=== PATIENT | male | born 1990 | race Caucasian/White ===

== ENCOUNTER 2017-09-10 16:26 | Emergency (ER) | payer OTHER ==
[~2017-09-10] VITALS: Ht 177.8 cm; Wt 95.3 kg
[~2017-09-10 16:26] MED LIST: IBUPROFEN 600600 M1 PO; PRILOSEC; TOBREX5 ML OP
[2017-09-10 16:52] LABS: URINE BILIRUBIN NEGATIVE (Negative); URINE BLOOD NEGATIVE (Negative); URINE CLARITY CLEAR; URINE COLOR YELLOW; URINE GLUCOSE-RANDOM* NEGATIVE (Negative); URINE KETONES NEGATIVE (Negative); URINE LEUKOCYTES-REFLEX NEGATIVE (Negative); URINE NITRITE-REFLEX NEGATIVE (Negative); URINE PROTEIN (DIPSTICK) NEGATIVE (Negative); URINE SPECIFIC GRAVITY >= 1.030 (1.005-1.035); URINE UROBILINOGEN 0.2 E.U./dl (0.2-1.0)
[2017-09-10 17:13] LABS: BASOPHILS 0.5 % (0.0-2.0); EOSINOPHILS 2.7 % (0.0-3.0); HEMATOCRIT 42.4 % (42.0-52.0); HEMOGLOBIN 14.5 gm/dL (14.0-18.0); LYMPHOCYTES 15.7 % (24.0-44.0); MCH 29.3 pg (26.0-34.0); MCHC 34.3 g/dL (28.0-37.0); MCV 85.4 fL (80.0-100.0); MONOCYTES 6.3 % (1.0-8.0); PLATELET COUNT 305 thou/uL (150-400); POLYS 74.8 % (36.0-66.0); RBC 4.96 mil/uL (4.50-6.00); RDW 13.3 % (10.5-14.5)
[2017-09-10 17:25] LABS: CALCIUM 9.3 mg/dL (8.5-10.1); CREATININE 0.9 mg/dL (0.7-1.3); POTASSIUM 4.1 mmol/L (3.5-5.1)
[2017-09-10 17:31] LABS: ALBUMIN 4.2 g/dL (3.4-5.0); TOTAL BILIRUBIN 0.8 mg/dL (<0.1-1.0); TOTAL PROTEIN 7.6 g/dL (6.4-8.2)
[2017-09-10] MEDS ORDERED: IBUPROFEN 600600 M1 PO (18:22)
[2017-09-10] MEDS ORDERED: ZOFRAN ODT4 MG PO (18:22)
[2017-09-10] MEDS ORDERED: HYDROCODONE-AP1 EAC6 PO (18:22)
== END 2017-09-10 18:31 | disposition home or self-care (01) ==
LOC: ER 16:26
PROVIDERS: Physician Assistant
DX: N20.0 Calculus of kidney (principal); R10.9 Unspecified abdominal pain; J45.909 Unspecified asthma, uncomplicated; Z98.890 Other specified postprocedural states

== ENCOUNTER → 2017-09-15 | Outpatient (CLI) | payer OTHER ==
[~2017-09-15] MED LIST changes: +FLOMAX0.4 MG PO; +HYDROCODONE-AP1 EAC6 PO; +TORADOL 10 MG T10 MG PO; +ZOFRAN ODT4 MG DISSOLVE; +ZOFRAN ODT4 MG PO
== END ==
LOC: RAD 12:03
DX: N20.0 Calculus of kidney (principal)

== ENCOUNTER 2017-12-18 05:23 | Emergency (ER) | payer OTHER ==
[~2017-12-18] VITALS: Ht 180.3 cm; Wt 95.3 kg
[~2017-12-18 05:23] MED LIST changes: -FLOMAX0.4 MG PO; -TORADOL 10 MG T10 MG PO; -ZOFRAN ODT4 MG DISSOLVE
[2017-12-18 06:00] LABS: URINE BILIRUBIN NEGATIVE (Negative); URINE BLOOD 1+ (Negative); URINE CLARITY CLEAR; URINE COLOR YELLOW; URINE GLUCOSE-RANDOM* NEGATIVE (Negative); URINE KETONES NEGATIVE (Negative); URINE LEUKOCYTES-REFLEX NEGATIVE (Negative); URINE NITRITE-REFLEX NEGATIVE (Negative); URINE PROTEIN (DIPSTICK) NEGATIVE (Negative); URINE SPECIFIC GRAVITY >= 1.030 (1.005-1.035); URINE UROBILINOGEN 0.2 E.U./dl (0.2-1.0)
[2017-12-18 06:04] LABS: BACTERIA-REFLEX 1-9 Few /HPF (None Seen); CASTS None Seen /LPF (None Seen); CRYSTALS None Seen /LPF (None Seen); MUCUS 0-3 Light strn/LPF (None Seen); SQUAMOUS 0-3 Few /LPF (0-3); URINE RBC 3-10 Few /HPF (0-2); URINE WBC-REFLEX 0-5 Rare /HPF (0-5)
[2017-12-18 06:27] LABS: ABSOLUTE NEUTROPHILS 9.8 thou/uL (1.4-8.2); BASOPHILS 0.3 % (0.0-2.0); EOSINOPHILS 5.7 % (0.0-3.0); HEMATOCRIT 43.1 % (42.0-52.0); HEMOGLOBIN 14.5 gm/dL (14.0-18.0); LYMPHOCYTES 17.2 % (24.0-44.0); MCHC 33.7 g/dL (28.0-37.0); PLATELET COUNT 311 thou/uL (150-400); POLYS 68.8 % (36.0-66.0); RBC 5.02 mil/uL (4.50-6.00); RDW 13.4 % (10.5-14.5); WBC 14.2 thou/uL (4.0-11.0)
[2017-12-18 06:34] LABS: CALCIUM 9.3 mg/dL (8.5-10.1); CREATININE 1.1 mg/dL (0.7-1.3); POTASSIUM 4.1 mmol/L (3.5-5.1)
[2017-12-18 06:40] LABS: ALBUMIN 3.8 g/dL (3.4-5.0); DIRECT BILIRUBIN 0.1 mg/dL (<0.1-0.3); TOTAL BILIRUBIN 0.7 mg/dL (<0.1-1.0); TOTAL PROTEIN 7.1 g/dL (6.4-8.2)
[2017-12-18] MEDS ORDERED: TORADOL 10 MG T10 MG PO (06:52)
[2017-12-18] MEDS ORDERED: FLOMAX0.4 MG PO (06:52)
[2017-12-18 07:11] VITALS: BP 117/57
== END 2017-12-18 07:22 | disposition home or self-care (01) ==
LOC: ER 05:23
PROVIDERS: Emergency Medicine
DX: N20.1 Calculus of ureter (principal)

== ENCOUNTER 2018-01-30 12:45 | Emergency (ER) | payer OTHER ==
[~2018-01-30] VITALS: Ht 177.8 cm; Wt 88.5 kg
[~2018-01-30 12:45] MED LIST changes: +FLOMAX0.4 MG PO; +TORADOL 10 MG T10 MG PO
[2018-01-30] MEDS ORDERED: ZOFRAN ODT4 MG DISSOLVE (13:03)
[2018-01-30 13:27] LABS: ABSOLUTE NEUTROPHILS 6.2 thou/uL (1.4-8.2); BASOPHILS 0.5 % (0.0-2.0); EOSINOPHILS 6.2 % (0.0-3.0); HEMATOCRIT 44.2 % (42.0-52.0); HEMOGLOBIN 15.3 gm/dL (14.0-18.0); LYMPHOCYTES 23.9 % (24.0-44.0); MCH 29.4 pg (26.0-34.0); MCHC 34.6 g/dL (28.0-37.0); MCV 84.9 fL (80.0-100.0); PLATELET COUNT 287 thou/uL (150-400); POLYS 64.4 % (36.0-66.0); RBC 5.21 mil/uL (4.50-6.00); RDW 13.7 % (10.5-14.5); WBC 9.5 thou/uL (4.0-11.0)
[2018-01-30 13:30] LABS: CALCIUM 9.6 mg/dL (8.5-10.1); CREATININE 0.9 mg/dL (0.7-1.3); POTASSIUM 4.1 mmol/L (3.5-5.1)
[2018-01-30 13:36] LABS: ALBUMIN 4.1 g/dL (3.4-5.0); DIRECT BILIRUBIN 0.2 mg/dL (<0.1-0.3); TOTAL BILIRUBIN 1.2 mg/dL (<0.1-1.0); TOTAL PROTEIN 7.6 g/dL (6.4-8.2)
[2018-01-30] MEDS ORDERED: ZOFRAN ODT4 MG PO (15:17)
[2018-01-30 15:29] VITALS: BP 119/74
== END 2018-01-30 15:30 | disposition home or self-care (01) ==
LOC: ER 12:45
PROVIDERS: Emergency Medicine
DX: R11.2 Nausea with vomiting, unspecified (principal); R10.9 Unspecified abdominal pain; J45.909 Unspecified asthma, uncomplicated; Z90.89 Acquired absence of other organs

== ENCOUNTER 2018-12-20 05:29 | Day surgery (SDC) | payer OTHER ==
[~2018-12-20] VITALS: Ht 177.8 cm; Wt 86.2 kg
[~2018-12-20 05:29] MED LIST changes: +VENTOLIN HFA 1818 GM INH; +ZOFRAN ODT4 MG DISSOLVE
[2018-12-20 11:47] VITALS: BP 143/89
[2018-12-20 16:38] VITALS: BP 143/89
--- NOTE | 2018-12-21 06:23 | O ---
[address] [address] OPERATIVE REPORT Name: BERTIN CERVANTES Room #: DEP [facility]#: [id number] Admission: 12/20/18 ������������������ Attend Phys: Ramiro Steel MD Discharge: 12/20/18 ������������������ Date of : 88 Report #: [id number] THIS REPORT FOR: //name// CC: Ramiro Solano DATE OF SERVICE: 12/20/2018 SERVICE: Orthopedics. FACILITY: [facility]. SURGEON: Ramiro Steel MD. STEEL CRANE OPERATOR: Veena Mata NP. INDICATION FOR STEEL CRANE OPERATOR: Extremity positioning, suture management and assistance with the repair. PREOPERATIVE DIAGNOSES: 1. On job injury to right hip. 2. Right hip pain. 3. Right hip labral tear. 4. Right hip impingement. POSTOPERATIVE DIAGNOSES: 1. On job injury to right hip. 2. Right hip pain. 3. Right hip labral tear. 4. Right hip impingement. PROCEDURES: 1. Right hip arthroscopic labral repair. 2. Right hip arthroscopic Cam osteochondroplasty. 3. Right hip arthroscopic extraarticular subspine acetabuloplasty. COMPLICATIONS: None. DRAINS: None. SPECIMENS: None. ANESTHESIA TYPE: General with regional. ESTIMATED BLOOD LOSS: [address] [address] OPERATIVE REPORT Name: BERTIN CERVANTES [facility] [id number] Admission: 12/20/18 ������������������ Attend Phys: Ramiro Steel MD Discharge: 12/20/18 ������������������ Date of : 88 Report #: [id number] FINDINGS: 1. Labral repair with Madi CinchLock suture anchor x 2. 2. Significant distal Cam lesion treated with osteoplasty. 3. Capsular repair with #2 Vicryl suture x 4. HISTORY OF PRESENT ILLNESS: The patient is a gentleman who sustained an injury on the job with a pivoting type of mechanism to the hip. This was approximately 6 or so months ago. He had been treated conservatively for quite some time including rest, activity modifications, physical therapy, medications, all without sufficient relief. 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 We had a discussion about optimal treatment measures and he wished to have definitive surgical treatment. Risks, benefits, alternatives, and indication of surgery discussed with him in detail. Risks include but not limited to pain, bleeding, infection, injury to nerves or blood vessels, persistent pain despite surgical intervention, progression of any preexisting chondral injury, stiffness, need for further surgery as well as complications related to anesthesia such as stroke, heart attack, pulmonary complications, thromboembolic disease and . Despite the risks, he wished to proceed. PROCEDURE IN DETAIL: After right lower extremity was correctly identified in preoperative holding area as the operative extremity, patient underwent placement of a single shot regional nerve block by anesthesia. He was then taken to the operating room where general anesthesia was induced without complication. He was padded appropriately. Prophylactic antibiotics were administered at appropriate time. Right leg was mapped out under fluoroscopy to assess the extent of the proximal femoral anatomy. There was noted to be a prominent Cam bump on the femoral neck with the alpha angle of approximately 57 degrees. Right hip was then prepped and draped in standard sterile fashion. Timeout procedure was performed. Traction was applied to right leg. Standard anterolateral viewing portal was established followed by mid anterior working portal. Then, a transverse capsulotomy was performed. There was noted to be significant amount of synovitis within the hip and erythema within the capsule. Overall, the labral volume was small compared to the typical. Then there was a tear of the anterosuperior acetabular labrum at the chondral labral junction. There was some fraying on the articular side of the labrum and there was a partial thickness tear extending through the chondrolabral junction. The capsule was reflected off the dorsal side of the labrum allowing access to the low lying pincer lesion, which was the source of extraarticular subspine impingement and this was recessed with the bur in a typical fashion and then the acetabular labral repair was performed. Two Madi CinchLock suture anchors were used to stabilize the labrum with simple suture technique. Traction was let down. [address] [address] OPERATIVE REPORT Name: BILLYBERTIN Room #: DEP [facility] M..#: [id number] Admission: 12/20/18 ������������������ Attend Phys: Ramiro Steel MD Discharge: 12/20/18 ������������������ Date of : 88 Report #: [id number] The hip was flexed. Attention was turned towards the peripheral compartment. The Cam lesion was further distal on the femoral neck and so the transverse capsulotomy was extended down the neck in a T-shaped allowing access to the entire Cam deformity. The bur was used to perform a Cam osteoplasty in typical fashion. Instruments were then removed from the hip. C-arm was brought in to assess the osteoplasty. I identified some additional bone over the lateral shoulder that needed to be resected and placed the instruments back into the hip, completed the Cam osteoplasty, lavaged the bony debris out of the hip, removed the instruments, took final x-rays to confirm adequate Cam osteoplasty and then placed instruments back into the hip. The T-shaped capsulotomy was then closed with four #2 Vicryl sutures. The instruments were then removed. Portal sites were closed. Sterile dressing was applied. The patient was awakened from anesthesia and taken to recovery room in stable condition. No complications and all counts were correct. ��������������������������������������������� <ELECTRONICALLY SIGNED> ���������������������������������������� By: Ramiro Steel MD ��������������������������������������������� 12/21/18 [id number] Ramiro Steel MD /nt
== END 2018-12-20 18:46 | disposition home or self-care (01) ==
LOC: OR 05:29 → TBA 05:29 → OR 07:42
DX: S73.101A Unspecified sprain of right hip, initial encounter (principal); M25.851 Other specified joint disorders, right hip; J45.909 Unspecified asthma, uncomplicated; F17.210 Nicotine dependence, cigarettes, uncomplicated; Z87.442 Personal history of urinary calculi; Z98.890 Other specified postprocedural states; Z79.899 Other long term (current) drug therapy; Z86.59 Personal history of other mental and behavioral disorders; X58.XXXA Exposure to other specified factors, initial encounter; Y92.89 Other specified places as the place of occurrence of the external cause; Y93.89 Activity, other specified
CPT/HCPCS: 50010; 50101; 50386; 51320; 51538; 52001; 52282; 52304; 52313; 53364; 55430; 56524; 56527; 57092; 57103; 62110; 62900; 70005